=== PATIENT | male | born 1980 | race Caucasian/White ===

== ENCOUNTER 2016-11-23 19:19 | Emergency (ER) | payer OTHER ==
[~2016-11-23 19:19] MED LIST: ALPR0.5T3 PO; IBUP-238 PO
[2016-11-23 19:27] VITALS: BP 102/74; PULSE 74; RESP 20; TEMP 98.2; O2SAT 98
[2016-11-23] MEDS ORDERED: AZIT250T3 PO (19:47)
[2016-11-23] MEDS ORDERED: ALBUAER3 INH (19:47)
[2016-11-23] MEDS ORDERED: NAPR500T PO (19:47)
--- NOTE | 2016-11-23 19:47 | PD ---
HPI Chief Complaint: Cold / Flu Symptoms Time Seen by Provider: 19:44 Travel History International Travel<30 days: No Contact w/Intl Traveler<30days: No Traveled to known affect area: No History of Present Illness HPI This is a 36-year-old male who presents to the emergency department with 3 weeks of productive cough with green sputum sometimes with some blood in it, constant, moderate severity, sometimes waking him up at night, associated with some subjective fevers and chills. He was prescribed prednisone by his primary care physician which she completed one week ago. He denies any smoking history. His and his daughter have been sick with similar symptoms. He got worried because his daughter's tech intern told him he may have pneumonia. PFSH Past Medical History Anxiety: Yes Past Surgical History Tonsillectomy: Yes Social History Alcohol Use: Yes (3 GLASSES WINE DAILY) Tobacco Use: No Substance Use: No Allergies-Medications (Allergen,Severity, Reaction): Coded Allergies: Doxycycline (Verified Adverse Reaction, Severe, PASSING OUT, 03/10/15) Reported Meds & Prescriptions Reported Meds & Active Scripts Active Alprazolam 0.5 Mg Tab 0.5 Mg PO TID May fill on 05/02/15 Motrin (Ibuprofen) 800 Mg Tab 800 Mg PO TID Review of Systems Except as stated in HPI: all other systems reviewed are Neg Physical Exam Narrative GENERAL:Well appearing, no acute distress SKIN: Focused skin assessment warm and dry. HEAD: Atraumatic. Normocephalic. EYES: Pupils equal and round. No injection or drainage. ENT: Moist mucous membranes NECK: Trachea midline. CARDIOVASCULAR: Regular rate and rhythm. No murmur appreciated. RESPIRATORY: Clear to auscultation. Breath sounds equal bilaterally. GASTROINTESTINAL: Abdomen soft, non-tender, nondistended. MUSCULOSKELETAL: No obvious deformities. NEUROLOGICAL: Awake and alert. No obvious cranial nerve deficits. Moving all extremities. PSYCHIATRIC: Appropriate mood and affect; insight and judgment normal. Data Data Last Documented VS Vital Signs Date Time Temp Pulse Resp B/P Pulse Ox O2 Delivery O2 Flow Rate FiO2 11/23/16 19:27 98.2 74 20 102/74 98 MDM Medical Decision Making Medical Screen Exam Complete: Yes Emergency Medical Condition: Yes Interpretation(s) Afebrile, no tachycardia, normotensive Differential Diagnosis Bronchitis, pneumonia, asthma, seasonal allergies Narrative Course This is a 36-year-old male who presents to the emergency department with a productive cough for 3 weeks. he has a benign physical exam and reassuring vital signs. I don't think he requires any imaging. He will be empirically treated with azithromycin for prolonged bronchitis, and he says bronchodilators have helped him in the past. Patient will be discharged home. Diagnosis Primary Impression: Bronchitis Patient Instructions: General Instructions Additional Instructions: If you develop severe shortness of breath, chest pain, or difficulty breathing return to the emergency department. Use albuterol every 4 hours for the next 2 days. Then use as needed for wheezing.s. Complete your course of antibiotics. Follow up with your primary care physician in 2-3 days if your symptoms have not improved. Med/Other Pt SpecificInfo: Prescription(s) given Scripts Naproxen 500 Mg [id number] Mg PO BID PRN (PAIN SCALE 4 TO 10) #10 TAB Ref 0 Prov:Jessica Smith MD 11/23/16 Azithromycin 250 Mg [id number] Mg PO DIRECTED #6 TAB Ref 0 Take 2 tabs (500 mg) on day 1 then 1 tab daily x 4 days. Prov:Jessica Smith MD 11/23/16 Albuterol 8.5 GM Inh (Proair Hfa 8.5 GM Inh)90 Mcg/Act Aer2 Puff INH Q4-6H PRN ( SHORTNESS OF BREATH) #1 INHALER Ref 0 108 mcg/actuation Prov:Jessica Smith MD 11/23/16 Disposition: 01 DISCHARGE HOME Condition: Stable Jessica Smith MD Nov 23, 2016 19:47
[2016-11-23] MEDS ORDERED: ALPR0.5T3 PO (19:52)
[2016-11-23 19:55] VITALS: BP 109/63
== END 2016-11-23 20:05 | disposition home or self-care (01) ==
LOC: PHED 19:19
DX: J40 Bronchitis, not specified as acute or chronic (principal)
CPT/HCPCS: 99283

== ENCOUNTER 2017-04-29 17:59 | Emergency (ER) | payer OTHER ==
[~2017-04-29] VITALS: Ht 177.8 cm; Wt 70.0 kg
[~2017-04-29 17:59] MED LIST changes: +ALBUAER3 INH; +AZIT250T3 PO; -IBUP-238 PO; +NAPR500T PO
[2017-04-29 18:02] VITALS: BP 122/72; PULSE 98; RESP 20; TEMP 98.2; O2SAT 96
--- NOTE | 2017-04-29 19:32 | RADRPT ---
EXAM DATE/TIME: 04/29/2017 19:09 [facility] COMPARISON: No previous studies available for comparison. INDICATIONS : Cough, chest congestion for over 6 months MEDICAL HISTORY : None. SURGICAL HISTORY : None. ENCOUNTER: Initial ACUITY: 4 - 6 months PAIN SCORE: 0/10 LOCATION: Bilateral chest FINDINGS: PA and lateral views of the chest demonstrate the lungs to be symmetrically aerated without evidence of mass, infiltrate or effusion. The cardiomediastinal contours are unremarkable. Osseous structure s are intact. CONCLUSION: No evidence of acute cardiopulmonary disease. Marcus Rodriguez MD on April 29, 2017 at 19:31 Board Certified Radiologist. This report was verified electronically.
--- NOTE | 2017-04-29 19:34 | PD ---
HPI Chief Complaint: Cold / Flu Symptoms Time Seen by Provider: 18:45 Travel History International Travel<30 days: No Contact w/Intl Traveler<30days: No Traveled to known affect area: No History of Present Illness HPI 39-year-old male presents to the emergency department for evaluation of 6 month cough. Patient since he has been treated multiple times in other facilities with inhalers, steroids and antibiotics and has had chest x-rays in the past that have been negative. More recently in an attempt to treat the cough the patient has been given medication for allergies. The patient has taken the allergy medication for one month but states none at the treatments have been effective in controlling the cough. Patient states nothing exacerbates or alleviates the cough. He states it is not worse at night. He states there is no difference between night and day with the cough. Patient states it is mostly a dry cough however he does intermittently produce sputum. Patient denies any fevers, chills, malaise. Patient denies any recent travels, history of malignancies or blood clots, or unilateral leg swelling or pain. Patient denies any abdominal pain, nausea, vomiting or diarrhea. Patient denies any chest pain or shortness of breath that is not associated with coughing. PFSH Past Medical History Anxiety: Yes Tetanus Vaccination: < 5 Years Influenza Vaccination: Yes Past Surgical History Tonsillectomy: Yes Social History Alcohol Use: Yes (3 GLASSES WINE DAILY) Tobacco Use: No Substance Use: No Allergies-Medications (Allergen,Severity, Reaction): Coded Allergies: doxycycline (Unverified Adverse Reaction, Severe, PASSING OUT, 04/29/17) Reported Meds & Prescriptions Reported Meds & Active Scripts Active Proair Hfa 8.5 GM Inh (Albuterol Sulfate) 90 Mcg/Act Aer 2 Puff INH Q6H PRN 108 mcg/actuation Prednisone 20 Mg Tab 20 Mg PO BID 5 Days Reported Alprazolam 0.5 Mg Tab 0.5 Mg PO Q8H PRN Review of Systems Except as stated in HPI: all other systems reviewed are Neg Physical Exam Narrative GENERAL: Well-nourished, well-developed 36 year old male patient. In no acute distress. SKIN: Focused skin assessment warm/dry. HEAD: Normocephalic. Atraumatic EYES: No scleral icterus. No injection or drainage. NECK: Supple, trachea midline. No JVD or lymphadenopathy. CARDIOVASCULAR: Regular rate and rhythm without murmurs, gallops, or rubs. RESPIRATORY: Breath sounds clear in all lobes on left side. Breath sounds diminished in right base. No accessory muscle use. GASTROINTESTINAL: Abdomen soft, non-tender, nondistended. MUSCULOSKELETAL: No cyanosis, or edema. Data Data Last Documented VS Orders Orders Chest, Pa & Lat (04/29/17 18:56) [facility] Medical Decision Making Medical Screen Exam Complete: Yes Emergency Medical Condition: Yes Medical Record Reviewed: Yes Differential Diagnosis Upper respiratory infection versus bronchitis versus pneumonia Narrative Course 36-year-old well-developed well-nourished male patient presents to the emergency department for evaluation of cough that is lasted for 6 months. Patient denies any tobacco use. Patient denies any fevers, chills, malaise or systemic complaints. There is no edema noted to the bilateral legs for pain and calves. Patient denies any recent travels, history of malignancies or history of blood clots. Patient denies any abdominal pain, nausea, vomiting or diarrhea. Patient states in the course of the last 6 months he has been given multiple courses of antibiotics, steroids, inhalers and chest x-rays that have been negative. He states none of the treatments have been effective. Nothing exacerbates or alleviates the cough. The patient has a friend with him that works in radiology at our facility and was requesting a CTA. Patient excluded from pulmonary embolism using perc criteria. The risks and benefits of radiology were discussed with the patient. A chest x-ray ordered and pending. Chest x-ray negative for any acute findings. Findings discussed with LACY Kathleen. Patient will be discharged home with a prescription for prednisone and an albuterol inhaler and instructions to follow- up with his primary care physician. Diagnosis Primary Impression: Reactive airway disease Qualified Codes: J45.40 - Moderate persistent asthma, uncomplicated Referrals: Primary Care Physician Patient Instructions: Chronic Cough (ED), General Instructions Additional Instructions: If you develop severe shortness of breath, chest pain, or difficulty breathing return to the emergency department. Use albuterol inhaler as needed. Complete course of prednisone. Follow up with your primary care physician in 2-3 days. Med/Other Pt SpecificInfo: Prescription(s) given Scripts Albuterol 8.5 GM Inh (Proair Hfa 8.5 GM Inh) 90 Mcg/Act Aer 2 PUFF INH Q6H Y for SHORTNESS OF BREATH, #1 INHALER 0 Refills 108 mcg/actuation Prov: Dominique Avilez 04/29/17 Prednisone (Prednisone) 20 Mg Tab 20 MG PO BID for 5 Days, #10 TAB 0 Refills Prov: Dominique Avilez 04/29/17 Disposition: 01 DISCHARGE HOME Condition: Stable Dominique Avilez Apr 29, 2017 19:34
[2017-04-29] MEDS ORDERED: PRED20 PO (19:48)
[2017-04-29] MEDS ORDERED: ALBUAER3 INH (19:48)
== END 2017-04-29 19:55 | disposition home or self-care (01) ==
LOC: EDTENT 17:59
DX: J45.40 Moderate persistent asthma, uncomplicated (principal)
CPT/HCPCS: 71020; 99284

== ENCOUNTER 2017-08-02 10:57 | Emergency (ER) | payer OTHER ==
[~2017-08-02] VITALS: Ht 180.3 cm; Wt 80.0 kg
[~2017-08-02 10:57] MED LIST changes: -AZIT250T3 PO; -NAPR500T PO; +PRED20 PO
[2017-08-02 11:09] VITALS: BP 135/80; PULSE 80; RESP 19; TEMP 98.9; O2SAT 98
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
[2017-08-02] MEDS ORDERED: OMEP20TA93 PO (11:14)
[2017-08-02] MEDS ORDERED: LORA-650 PO (11:14)
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
[2017-08-02] MEDS ORDERED: IBUPROFEN 600 MG TAB PO ONE (12:00)
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
[2017-08-02] MEDS ORDERED: MOBI15TA PO (12:23)
[2017-08-02] MEDS ORDERED: TRAM50 PO (12:23)
[2017-08-02] MEDS ORDERED: ROBA750T PO (12:23)
== END 2017-08-02 12:57 | disposition home or self-care (01) ==
LOC: NEPD 10:57
DX: S16.1XXA Strain of muscle, fascia and tendon at neck level, initial encounter (principal); S29.019A Strain of muscle and tendon of unspecified wall of thorax, initial encounter; F41.9 Anxiety disorder, unspecified; V43.52XA Car driver injured in collision with other type car in traffic accident, initial encounter; Z79.899 Other long term (current) drug therapy; Z88.8 Allergy status to other drugs, medicaments and biological substances
CPT/HCPCS: 72125; 72128; 99285